=== PATIENT | male | born 1950 ===

== ENCOUNTER 2022-12-09 08:50 | Emergency (ER) | payer SELFPAY | END 2022-12-09 12:54 | disposition left against medical advice (07) | LOC: EMS 09:29 | DX: Z53.21 Procedure and treatment not carried out due to patient leaving prior to being seen by health care provider (principal) ==

== ENCOUNTER 2025-07-26 19:27 | Emergency (ER) | payer OTHER ==
[~2025-07-26] VITALS: Ht 167.6 cm; Wt 100.0 kg
[2025-07-26 19:38] VITALS: TEMP 97.7
[2025-07-26 20:08] LABS: PLATELET COUNT (AUTO) 193 K/uL (150-450); RED BLOOD CELL COUNT(AUTO) 5.12 MIL/uL (4.50-5.90); RED CELL DISTRIBUTION WIDTH 14.3 % (11.5-14.5); WHITE BLOOD COUNT (AUTO) 11.3 K/uL (4.5-11.0)
[2025-07-26 20:21] LABS: ASPARTATE AMINOTRANSFERASE 38.0 U/L (15-37); TOTAL PROTEIN, SERUM 7.2 g/dL (6.4-8.2)
[2025-07-26 20:30] LABS: CALCIUM, TOTAL 8.8 mg/dL (8.8-10.5); CREATININE 1.44 mg/dL (0.60-1.30); GLOMERULAR FILTR. RATE CALC 48 mL/min (>60); GLUCOSE,RANDOM 208 mg/dL (70-110); SODIUM SERUM 140 mmol/L (136-145); UREA NITROGEN, BLOOD 33 mg/dL (7-18)
[2025-07-26 20:31] LABS: TROPONIN I-HIGH SENSITIVITY 255 ng/L (<76)
[2025-07-26] MEDS ORDERED: IOHEXOL 300 MG/ML 100 ML VIAL ONE (21:00)
[2025-07-26] MEDS ORDERED: ONDANSETRON HCL 4 MG/2 ML VIAL IVP PRN (21:30)
[2025-07-26] MEDS ORDERED: ACETAMINOPHEN 325 MG TABLET PO PRN (21:30)
[2025-07-26] MEDS ORDERED: LABETALOL HCL 5 MG/ML 20 ML VIAL IVP PRN (21:30)
[2025-07-26] MEDS ORDERED: RINGERS SOLUTION,LACTATED 500 ML IV ONE (21:30)
[2025-07-26] MEDS: ASPIRIN 81 MG CHEWABLE TABLET PO ONE (21:46)
[2025-07-26] MEDS: ATORVASTATIN CALCIUM 40 MG TABLET PO SCH (21:46)
[2025-07-26] MEDS: RINGERS SOLUTION,LACTATED 500 ML IV ONE (21:55)
[2025-07-26 21:58] VITALS: BP 144/110; PULSE 90; RESP 20; O2SAT 95
[2025-07-26 23:01] LABS: TROPONIN I-HIGH SENSITIVITY 130 ng/L (<76)
[2025-07-27] MEDS ORDERED: ASPIRIN 81 MG CHEWABLE TABLET PO SCH (09:00)
[2025-07-27] MEDS ORDERED: CLOPIDOGREL BISULFATE 75 MG TABLET PO SCH (09:00)
[2025-07-27] MEDS ORDERED: DOCUSATE SODIUM 100 MG CAPSULE PO SCH (09:00)
[2025-07-28] MEDS ORDERED: HEPARIN SODIUM,PORCINE 5,000 UNITS/ML VIAL SQ SCH (12:00)
[2025-08-08] MEDS ORDERED: LOSA-417 PO (14:45)
== END 2025-07-27 00:20 | disposition admitted as inpatient to this hospital (09) ==
LOC: EMS 19:27 → UNDOADMIN 21:19 → EDH 21:19
DX: I63.9 Cerebral infarction, unspecified (principal); E11.9 Type 2 diabetes mellitus without complications; I10 Essential (primary) hypertension; E78.5 Hyperlipidemia, unspecified; R53.1 Weakness
CPT/HCPCS: 99285; 70450; 96360; 71045; 80048; 80076; 83880; 84484; 85025; 85610; 85730; 36415; 74177; 93005; J7030; Q9967; G0378; J3490; J7050; J7120